=== PATIENT | male | born 1975 | race Caucasian/White ===

== ENCOUNTER 2023-07-09 08:00 | Outpatient (CLI) | payer BC | END 2023-07-09 08:30 | disposition home or self-care (01) | LOC: SLB 08:00 → EDSTATUS 07-11 07:30 | PROVIDERS: ATTEND Surgery | DX: Z01.812 Encounter for preprocedural laboratory examination (principal); K60.3 Anal fistula | CPT/HCPCS: 87081 ==

== ENCOUNTER 2024-01-07 10:56 | Day surgery (SDC) | payer BC ==
[~2024-01-07] VITALS: Ht 177.8 cm; Wt 81.6 kg
[2024-01-07] MEDS ORDERED: fentaNYL CITRATE/PF 100 MCG/2 ML AMP ONE (12:57)
[2024-01-07] MEDS ORDERED: MIDAZOLAM HCL 5 MG/5 ML VIAL ONE (12:58)
[2024-01-07 15:17] VITALS: BP_SYST 112; PULSE 56; RESP 16; TEMP 97.6; O2SAT 98
== END 2024-01-07 14:28 | disposition home or self-care (01) ==
LOC: SDS 10:56 → SMU 10:58 → SDS 14:28
PROVIDERS: ATTEND Surgery
DX: K62.5 Hemorrhage of anus and rectum (principal); K60.3 Anal fistula; Z79.899 Other long term (current) drug therapy
CPT/HCPCS: 45378; 99153; 99152; G0378; J2250; J3010